=== PATIENT | female | born 2000 | race Asian ===

== ENCOUNTER 2018-10-09 03:51 | Emergency (ER) | payer OTHER ==
--- NOTE | 2018-10-09 03:56 | PDOC ---
History of Present Illness - General Stated Complaint: SORE THROAT Time Seen by Provider: 10/09/18 03:54 - History of Present Illness Initial Comments: 10/09/18 03:56 18 year old woman with 2 days of subjective fever, sore throat, coughing yellow phlegm. The patient has been living with brother's family who all have diagnosed flu and were being treated. The patient was not on ppx medications. She last took motrin around 2100 when she felt like she had a fever, but woke up approx 1 hour w/ fever symptoms and sore throat could not sleep. The patient has not been talking and 2/2 to soreness in the throat when talking, eating or swallowing. Med Hx: Hitrschprung Dis, colostomized and reversed . 10/09/18 04:14 10/09/18 04:16 Past History - Past Medical History Allergies/Adverse Reactions: Allergies Allergy/AdvReac Type Severity Reaction Status Date / Time No Known Allergies Allergy Verified 10/09/18 04:01 Home Medications: Ambulatory Orders Oseltamivir Phosphate [Tamiflu -] 75 mg PO DAILY #5 capsule 10/09/18 Oseltamivir Phosphate [Tamiflu -] 75 mg PO DAILY #5 capsule 10/09/18 - Suicide/Smoking/Psychosocial Hx Smoking History: Never smoked Substance Use Type: None *Physical Exam - Physical Exam Comments: 10/09/18 04:16 slight cervical lymphadenopathy ctab Medical Decision Making - Medical Decision Making 10/09/18 04:17 ED Course: consider influenza vs strep throat vs viral uri *DC/Admit/Observation/Transfer Diagnosis at time of Disposition: Influenza B - Discharge Dispostion Disposition: HOME Condition at time of disposition: Stable Decision to Admit order: No - Prescriptions Prescriptions: Oseltamivir Phosphate [Tamiflu -] 75 mg PO DAILY #5 capsule Oseltamivir Phosphate [Tamiflu -] 75 mg PO DAILY #5 capsule - Referrals Referrals: Marta Newby MD [Staff Physician] - - Patient Instructions Printed Discharge Instructions: DI for Influenza -- Adult Additional Instructions: You were seen in the ED for complaints of cough, sore throat In the ED you were evaluated with labwork. Your results were significant for influenza B. There does not appear to be an acute need for immediate hospitalization. You are advised to follow up with your Primary Care Physician within 1 week. You were given a prescription for Tamiflu and are advised to take medications as directed. Return to the ED immediately if you experience worsening of symptoms, difficulty breathing, fever, coughing blood or chest pain. - Post Discharge Activity
--- NOTE | 2018-10-09 03:58 | PDOC ---
Attending Attestation - Resident Resident Name: Brandy Lawrenceie - ED Attending Attestation I have performed the following: I have examined & evaluated the patient, The case was reviewed & discussed with the resident, I agree w/resident's findings & plan, Exceptions are as noted - HPI HPI: 10/09/18 04:25 18 yo F presenting to the ER with brother due to throat pain Symptoms began 2 days ago (+) ill contacts (+) cough No vocal changes, no drooling, no trismus - Physicial Exam PE: 10/09/18 04:21 GENERAL: The patient is in no acute distress. EYES: PERRLA, EOMI, sclera injection ENT: Ears normal, nares patent, oropharynx clear without exudates. Moist mucous membranes. Uvula midline, pharyngeal erythema, no tonsilar enlargement, no exudate NECK: Normal range of motion, supple without nuchal rigidity LUNGS: Breath sounds equal, clear to auscultation bilaterally. No wheezes. HEART: Tachycardiac, regular rhythm, no murmurs ABDOMEN: Soft, nontender, normoactive bowel sounds. No guarding, no rebound. EXTREMITIES: Normal range of motion, no edema. No clubbing or cyanosis. No erythema, or tenderness. NEUROLOGICAL: Cranial nerves II through XII grossly intact. Normal speech. No focal neurological deficits. SKIN: No rash - Medical Decision Making 10/09/18 04:24 DD: Viral pharyngitis, Strep pharyngitis, Influenza, Throat pain 2/2 coughing, Freeborn less likely given symptoms only 2 days Will do: Rapid strep Influenza Motrin/Decadron Will re assess 10/09/18 04:26 10/09/18 05:06 Rapid strep negative Influenza B positive Will discharge on Tamiflu
[2018-10-09 04:04] VITALS: BP 122/64; PULSE 120; TEMP 103; BMI 18.8
[2018-10-09] MEDS ORDERED: IBUPROFEN 100 MG/5 ML UNIT DOSE CUPS PO ONE (04:11)
[2018-10-09] MEDS ORDERED: DEXAMETHASONE SOD PHOSPHATE 10 MG/1 ML VIAL ONE (04:12)
[2018-10-09] MEDS ORDERED: IBUPROFEN 100 MG/5 ML UNIT DOSE CUPS ONE (04:12)
[2018-10-09] MEDS ORDERED: DEXAMETHASONE 4 MG TABLET (FP) PO ONE (04:13)
[2018-10-09] MEDS ORDERED: OSELTAMIVIR PHOSPHATE 75 MG CAPSULE PO ONE (04:41)
[2018-10-09] MEDS ORDERED: OSELTAMIVIR PHOSPHATE 75 MG CAPSULE ONE (04:43)
== END 2018-10-09 05:16 | disposition home or self-care (01) ==
LOC: JER 03:51
DX: J10.1 Influenza due to other identified influenza virus with other respiratory manifestations (principal)
CPT/HCPCS: 87070; 87804; 87880; 99282-25